=== PATIENT | female | born 1970 | race Caucasian/White ===

== ENCOUNTER 2020-07-30 05:24 | Emergency (ER) | payer BC, OTHER ==
[~2020-07-30] VITALS: Ht 157.5 cm; Wt 57.2 kg
[2020-07-30 05:25] VITALS: BP 129/79
--- NOTE | 2020-07-30 05:25 | NUR ---
TO BED # 02 AMBULATORY
--- NOTE | 2020-07-30 05:30 | NUR ---
PT AMBULATED TO RESTROOM WITH A STEADY GAIT.
--- NOTE | 2020-07-30 05:39 | NUR ---
PT AMBULATED BACK TO ED BED #2 FROM RESTROOM WITH A STEADY GAIT
--- NOTE | 2020-07-30 05:40 | NUR ---
ERMD AT BEDSIDE FOR MEDICAL EVALUATION
--- NOTE | 2020-07-30 05:40 | NUR ---
49 Y/O FEMALE PRESENTED TO THE ED C/O 03/22 CONSTANT THROBBING AND ACHING HEADACHE X12 DAYS THAT STARTS AT THE BASE AND RADIATES FORWARD TOWARDS THE FRONT OF HER HEAD. PT DENIES HX OF MIGRAINES. PT DENIES N/V, VISUAL CHANGES OR BLURRED VISION. PT DENIES TRAUMA OR INJURY TO THE AREA. PT STATED SHE HAS BEEN STRESSED DUE TO A NEW SCHEDULE AT HER EMPLOYMENT AND ADMITS TO LACK OF SLEEP. PT HAS A STEADY GAIT, PERRLA, NO FACIAL DROOP OR ASYMMETRICAL WEAKNESSES, CLEAR SPEECH, DENIES TENSION OR RIGIDITY AROUND HER NECK, NO SENSORY DEFICITS NOTED. PT STATED SHE TOOK TYLENOL AND EXCEDRIN AND HAS MINIMAL RELIEF OF PAIN. PT IS SITTING IN UPRIGHT POSITION. BED IS LOCKED AND IN LOWEST POSITION. SIDE [id number]. PT IS NOT IN ANY ACUTE DISTRESS AT THIS TIME. PMH: ENDOMETRIAL ABLATION NKA
[2020-07-30] MEDS ORDERED: KETOROLAC 60 MG/2 ML VIAL IM ONE (05:50)
[2020-07-30] MEDS ORDERED: ACETAMINOPHEN 325 MG TAB PO ONE (05:50)
--- NOTE | 2020-07-30 06:19 | NUR ---
ERMD AT BEDSIDE FOR RE-EVALUATION
[2020-07-30 06:30] VITALS: BP 129/79
--- NOTE | 2020-07-30 06:30 | NUR ---
Patient discharged with v/s stable. Written and verbal after care instructions given and explained. Patient alert, oriented and verbalized understanding of instructions. Ambulatory with steady gait. All questions addressed prior to discharge. ID band removed. Patient advised to follow up with PMD. Rx of FLEXERIL & NAPROSYN given. Patient educated on indication of medication including possible reaction and side effects. Opportunity to ask questions provided and answered.
== END 2020-07-30 06:30 | disposition home or self-care (01) ==
LOC: MED 05:24
DX: G44.209 Tension-type headache, unspecified, not intractable (principal); G47.9 Sleep disorder, unspecified; M79.10 Myalgia, unspecified site
CPT/HCPCS: 81025; 96372; 99283; J1885